=== PATIENT | female | born 1940 | race African-American/Black ===

== ENCOUNTER 2021-08-06 05:04 | Day surgery (SDC) | payer OTHER ==
[2021-08-03 14:36] VITALS: BMI 28.7
[2021-08-06] MEDS ORDERED: LIDOCAINE VISCOUS 2% ORAL/TOP 15 ML UNIT-DOSE CUP ONE (13:20)
[2021-08-06 14:02] VITALS: TEMP 97.1
[2021-08-06 14:51] VITALS: BP 138/73; PULSE 72
== END 2021-08-06 15:12 | disposition home or self-care (01) ==
LOC: JASU-ENDO 05:04
PROVIDERS: ATTEND Internal Medicine Cardiovascular Disease
PROC: 5A2204Z Restoration of Cardiac Rhythm, Single (ICD-10-PCS; 2021-08-06)
PROC: B246ZZ4 Ultrasonography of Right and Left Heart, Transesophageal (ICD-10-PCS; principal; 2021-08-06 13:30)
DX: I48.91 Unspecified atrial fibrillation (principal)
CPT/HCPCS: 92960; 93005; 93010; 93312; 93325

== ENCOUNTER 2021-08-27 05:00 | Day surgery (SDC) | payer OTHER ==
[2021-08-24 14:36] VITALS: BMI 28.1
[2021-08-27] MEDS ORDERED: ETOMIDATE 20 MG/10 ML AMPUL IVPUSH ONE (14:29)
[2021-08-27] MEDS ORDERED: LIDOCAINE HCL 2% 100 MG/5 ML DISP.SYRIN ONE (14:30)
[2021-08-27 15:06] VITALS: TEMP 97.7
[2021-08-27 15:52] VITALS: BP 126/79; PULSE 73
== END 2021-08-27 16:10 | disposition home or self-care (01) ==
LOC: JASU-ENDO 05:00
PROVIDERS: ATTEND Internal Medicine Cardiovascular Disease
PROC: 5A2204Z Restoration of Cardiac Rhythm, Single (ICD-10-PCS; principal; 2021-08-27 14:00)
DX: I48.91 Unspecified atrial fibrillation (principal)
CPT/HCPCS: 92960; 93005; 93010